=== PATIENT | female | born 1985 | race Caucasian/White ===

== ENCOUNTER 2016-11-18 14:18 | Emergency (ER) | payer OTHER | END 2016-11-18 15:06 | disposition home or self-care (01) | LOC: ER1 14:18 | DX: K04.7 Periapical abscess without sinus (principal); Z88.6 Allergy status to analgesic agent; Z88.2 Allergy status to sulfonamides; Z88.5 Allergy status to narcotic agent | CPT/HCPCS: 96372; 99282; J1885 ==